=== PATIENT | female | born 1935 | race Caucasian/White ===

== ENCOUNTER 2016-09-27 16:55 | Inpatient (IN) | payer MEDICARE, OTHER ==
[~2016-09-27] VITALS: Ht 162.6 cm; Wt 83.6 kg
--- NOTE | 2016-09-29 07:42 | NUR ---
PATIENT ALERT OREINTED X3 TALKING WITH STAFF AND [facility]. THEY ARE HERE TO TRANSFER TO [facility] [place]. REPORT WAS CALLED TO [facility] THIS AM AT 0630. PATIENT STABLE AT THIS TIME. GOING TO [facility] FOR CONSULT FOR VASCULAR SYSTEM. PATIENT HAS BLE CELLULITIS. THIS NURSE CLEANED BLE WITH NORMAL SALINE PAT DRY AND PUT DRY NON ADHERENT AND KERLIX THIS AM. PATIENT TOLERATED WITHOUT DIFFICULTY. CONTACT NUMBER AT HOSPITAL [phone]. NURSE ATTEMPTED TO CALL DAUGHTER DIDIER DAVIS TO INFORM OF TRANSFER, LINE BUSY. LEFT PHONE NUMBER FOR DAYSHIFT NURSE TO ATTEMPT TO CALL AGAIN........SARANYA MOLINA
== END 2016-09-29 07:15 | disposition short-term general hospital (02) | DRG 300 ==
LOC: ER 16:55 → MED 20:22
PROVIDERS: ADMIT Internal Medicine
DX: I74.5 Embolism and thrombosis of iliac artery (principal); L03.116 Cellulitis of left lower limb; N39.0 Urinary tract infection, site not specified; L03.115 Cellulitis of right lower limb; I73.9 Peripheral vascular disease, unspecified; B96.89 Other specified bacterial agents as the cause of diseases classified elsewhere; G25.81 Restless legs syndrome; E03.9 Hypothyroidism, unspecified; K21.9 Gastro-esophageal reflux disease without esophagitis; E78.5 Hyperlipidemia, unspecified; I12.9 Hypertensive chronic kidney disease with stage 1 through stage 4 chronic kidney disease, or unspecified chronic kidney disease; E11.22 Type 2 diabetes mellitus with diabetic chronic kidney disease; N18.9 Chronic kidney disease, unspecified; Z79.82 Long term (current) use of aspirin; Z79.4 Long term (current) use of insulin; Z79.899 Other long term (current) drug therapy; Z90.710 Acquired absence of both cervix and uterus; Z83.3 Family history of diabetes mellitus; I87.2 Venous insufficiency (chronic) (peripheral); Z66 Do not resuscitate; M19.90 Unspecified osteoarthritis, unspecified site; Z96.652 Presence of left artificial knee joint
CPT/HCPCS: 36415; J1650; J1940; J3370; J7050

== ENCOUNTER 2016-09-27 16:55 | Emergency (ER) | payer MEDICARE, OTHER | END 2016-09-27 20:21 | disposition critical access hospital (66) | LOC: ER 16:55 | DX: L03.116 Cellulitis of left lower limb (principal); L03.115 Cellulitis of right lower limb; N39.0 Urinary tract infection, site not specified; E11.9 Type 2 diabetes mellitus without complications; I10 Essential (primary) hypertension; E78.5 Hyperlipidemia, unspecified; J45.909 Unspecified asthma, uncomplicated; Z90.710 Acquired absence of both cervix and uterus; Z96.652 Presence of left artificial knee joint; Z79.82 Long term (current) use of aspirin; Z79.4 Long term (current) use of insulin; Z79.899 Other long term (current) drug therapy; Z88.5 Allergy status to narcotic agent | CPT/HCPCS: 36415; 96361; 96365 ==

== ENCOUNTER 2016-11-16 22:17 | Emergency (ER) | payer MEDICARE, OTHER | END 2016-11-17 00:45 | disposition short-term general hospital (02) | LOC: ER 22:17 | DX: K56.69 Other intestinal obstruction (principal); E11.9 Type 2 diabetes mellitus without complications; K21.9 Gastro-esophageal reflux disease without esophagitis; E78.5 Hyperlipidemia, unspecified; I10 Essential (primary) hypertension; J45.909 Unspecified asthma, uncomplicated; Z90.710 Acquired absence of both cervix and uterus; Z96.652 Presence of left artificial knee joint; Z79.4 Long term (current) use of insulin; Z79.82 Long term (current) use of aspirin; Z79.899 Other long term (current) drug therapy; Z88.5 Allergy status to narcotic agent | CPT/HCPCS: 36415; 51702; 96361; 96374 ==